=== PATIENT | female | born 1960 | race Caucasian/White ===

== ENCOUNTER 2018-03-12 15:37 | Outpatient (CLI) | payer OTHER | END 2018-03-12 15:38 | disposition critical access hospital (66) | LOC: EMS 15:37 | PROVIDERS: ATTEND Surgery | DX: S59.911A Unspecified injury of right forearm, initial encounter (principal); S00.81XA Abrasion of other part of head, initial encounter; V93.39XA Fall on board unspecified watercraft, initial encounter; Y92.814 Boat as the place of occurrence of the external cause | CPT/HCPCS: A0425; A0427 ==

== ENCOUNTER 2018-03-12 16:01 | Emergency (ER) | payer OTHER ==
[2018-03-12] MEDS ORDERED: HYDROmorphone 1 MG/ML CARPUJECT IVP STA ×2 (16:59→19:02)
--- NOTE | 2018-03-12 17:10 | XRAY Report ---
Procedure Date: 03/12/2018 Accession Number: [id number] / [id number] Procedure: XR - Wrist 4 View RT CPT Code: FULL RESULT: EXAM: RIGHT WRIST RADIOGRAPHY EXAM DATE: 03/12/2018 04:53 PM. CLINICAL HISTORY: Fall. COMPARISON: None. TECHNIQUE: 4 views. FINDINGS: Bones: There is a comminuted distal radius fracture. There is 2 cm of dorsal displacement of the distal radius articular surface. There is intra-articular involvement of fracture. There is fracture of the distal ulna. There is approximately 31 degrees of angulation of the distal radius fracture on the lateral image. Joints: No dislocation at the radiocarpal joint. Soft Tissues: There is soft tissue swelling of the distal forearm. IMPRESSION: Comminuted intra-articular distal radius fracture with 2 cm of displacement and 31 degrees of angulation. Distal ulna fracture. RADIA
--- NOTE | 2018-03-12 17:20 | ED Physician Documentation ---
History of Present Illness - Stated complaint Stated Complaint: FALL - Chief complaint Chief Complaint: Trauma Ext - History obtained from History obtained from: Patient, Family, EMS - History of Present Illness Timing: Today Pain level max: 10 Pain level now: 10 Quality: pain Improved by: rest Worsened by: movement. - Additonal information Additional information: Patient was on a boat, fell and hurt the right wrist. She is right handed. Also complains of pain to the R shoulder. No LOC. no vomiting. no ams. Review of Systems Ten Systems: 10 systems reviewed and negative Constitutional: denies: Fever, Chills Ears: denies: Ear pain Throat: denies: Sore throat Cardiac: denies: Chest pain / pressure Respiratory: denies: Cough GI: denies: Nausea, Vomiting, Diarrhea Skin: denies: Rash Musculoskeletal: denies: Neck pain, Back pain Neurologic: denies: Confused, Altered mental status, Headache, LOC PD PAST MEDICAL HISTORY - Past Medical History Past Medical History: Yes Neuro: Migraines Endocrine/Autoimmune: HyPOthyroidism Psych: Anxiety - Past Surgical History Past Surgical History: Yes General: Gastric surgery, 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, Hysterectomy, Other HEENT: Tonsil/Adenoidectomy, Other Derm: Skin cancer surgery - Present Medications Home Medications: Ambulatory Orders Medication Instructions Recorded Confirmed Acetaminophen [Tylenol Extra 03/12/18 Strength] Hydrocodone/Acetaminophen 1 - 2 each PO Q6H PRN #14 tablet 03/12/18 [Hydrocodon-Acetaminophen 5-325] Levothyroxine Sodium [Synthroid] 03/12/18 Ondansetron Odt [Zofran Odt] 03/12/18 Sertraline HCl [Zoloft] 03/12/18 Sumatriptan Succinate [Imitrex] 03/12/18 clonazePAM [Clonazepam] 03/12/18 - Allergies Allergies/Adverse Reactions: Allergies Allergy/AdvReac Type Severity Reaction Status Date / Time imiquimod [From Zyclara] Allergy Hives Verified 03/12/18 16:12 metronidazole [From Flagyl] Allergy Rash Verified 03/12/18 16:12 Sulfa (Sulfonamide Allergy Rash Verified 03/12/18 16:11 Antibiotics) - Social History Does the pt smoke?: No Smoking Status: Never smoker Does the pt drink ETOH?: Yes Does the pt have substance abuse?: No - Immunizations Immunizations are current?: Yes PD ED PE NORMAL - Vitals Vital signs reviewed: Yes - General General: Alert and oriented X 3, No acute distress, Well developed/nourished - HEENT HEENT: PERRL, EOMI, Ears normal, Moist mucous membranes, Pharynx benign, Other ( abrasion to the forehead, no hematoma or palpable skull fractures.) - Neck Neck: Supple, no meningeal sign, No bony TTP - Cardiac Cardiac: RRR, Strong equal pulses - Respiratory Respiratory: No respiratory distress, Clear bilaterally - Abdomen Abdomen: Soft, Non tender, Non distended - Back Back: No spinal TTP - Derm Derm: Warm and dry - Extremities Extremities: Other (deformity to the R wrist. states tingling to the fingers. NVI. also mild TTP over prox ulna. no deformity. no bony tenderness over the R shoulder or AC joint. 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 Distal ulna fracture. ) post reduction xray Radiology: Prelim report reviewed, EMP read contemporaneously, See rad report ( Distal radius fracture fragment in neutral position with decreased offset. ) R forearm xray Radiology: Prelim report reviewed, EMP read contemporaneously, See rad report ( No proximal to mid forearm fracture. Distal radius fragment without significant angulation. ) Procedures - Splint (location) R arm Splint applied by: Physician, Tech Type of splint: Fiberglass, Sugar tong Other: Patient tolerated well, No complications, Neurovascular intact, Sling provided - Reduction Body part reduced: Right, Wrist Fracture or dislocation: Fracture Anesthesia: Hematoma block, Lidocaine (enter cc) (10), Marcaine (enter cc) (10) Reduction aftercare: NV intact, Xray confirms reduction, Alignment improved, Splint applied, Sling, Patient tolerated well PD MEDICAL DECISION MAKING - ED course Complexity details: reviewed results, re-evaluated patient, considered differential, d/w patient, d/w family ED course: Patient is a 57-year-old female who presents to the emergency department with a right wrist fracture. This was reduced under hematoma block. Tolerated well. Placed in a sugar tong splint. [place] and will follow up with an orthopedist when she returns home. Pain well controlled. No other acute abnormalities on examination. Patient and family counseled regarding signs and symptoms for which I believe and urgent re-evaluation would be necessary. Patient with good understanding of and agreement to plan and is comfortable going home at this time This document was made in part using voice recognition software. While efforts are made to proofread this document, sound alike and grammatical errors may occur. - Sepsis Event Vital Signs: Vital Signs - 24 hr 03/12/18 03/12/18 03/12/18 16:04 19:09 20:01 Temperature 36.1 C L Heart Rate 71 63 63 Respiratory 15 15 20 Rate Blood Pressure 142/97 H 107/92 H 115/89 H O2 Saturation 98 963 H 99 Oxygen O2 Source Room air Departure - Departure Disposition: 01 Home, Self Care Clinical Impression: Distal radius fracture, right Qualifiers: Encounter type: initial encounter Fracture type: closed Fracture morphology: other intra-articular Qualified Code(s): S52.571A - Other intraarticular fracture of lower end of right radius, initial encounter for closed fracture Fracture of ulnar styloid Qualifiers: Encounter type: initial encounter Fracture type: closed Fracture alignment: nondisplaced Laterality: right Qualified Code(s): S52.614A - Nondisplaced fracture of right ulna styloid process, initial encounter for closed fracture Condition: Good Instructions: ED Fx Upper Ext Follow-Up: Provider,Other [Primary Care Provider] - Within 1 week Prescriptions: Hydrocodone/Acetaminophen [Hydrocodon-Acetaminophen 5-325] 1 - 2 each PO Q6H PRN #14 tablet PRN Reason: pain Comments: Return if you worsen. You need to follow up with an orthopedist for repeat evaluation. You may need surgery for this fracture as it is unstable. Do not drink alcohol or drive while on narcotic pain medicine. Note that many narcotic pain relievers also contain tylenol/acetaminophen. Please ensure that your total dose of acetaminophen from all sources does not exceed 3 grams (3000mg) per day. You may constipated on this medication, take a stool softener such as "Colace" twice a day while you are on it. Also recommend a [id number] laxative such as senna or MiraLAX any day that you do not have a bowel movement. If you received narcotic pain medication in the emergency department, do not drive or operate machinery for the next 24 hours. Discharge Date/Time: 03/12/18 20:20
[2018-03-12] MEDS ORDERED: LIDOCAINE 2% 10 ML MDV SUBQ STA (17:37)
[2018-03-12] MEDS ORDERED: BUPIVACAINE 0.5% PF 10 ML VIAL SUBQ STA (17:37)
[2018-03-12] MEDS ORDERED: LIDOCAINE 2% 10 ML MDV ONE (17:47)
[2018-03-12] MEDS ORDERED: oxyCOD/ACETAMIN 5 MG/325 MG TABLET PO STA (19:50)
[2018-03-12] MEDS ORDERED: oxyCODONE/ACET 5/325 Prepack 4 PO STA (19:50)
[2018-03-12 20:02] VITALS: BP 115/89
[2018-03-12] MEDS ORDERED: HYDROcod/ACET 5/325 Prepack 4 PO STA (20:05)
[2018-03-12] MEDS ORDERED: HYDROcod/ACETAM 5/325 MG TABLET PO STA (20:05)
--- NOTE | 2018-03-12 20:10 | XRAY Report ---
Procedure Date: 03/12/2018 Accession Number: [id number] / [id number] Procedure: XR - Wrist 2 View RT CPT Code: FULL RESULT: EXAM: RIGHT WRIST RADIOGRAPHY EXAM DATE: 03/12/2018 07:40 PM. CLINICAL HISTORY: Fracture. Post reduction. COMPARISON: WRIST 4 VIEW RT 03/12/2018. TECHNIQUE: 2 views. FINDINGS: Bones: There is a comminuted distal radius fracture. Distal radius fragment is in neutral position on the lateral image. The degree of displacement is decreased. Joints: Normal. No subluxations. Soft Tissues: A cast has been applied. IMPRESSION: Distal radius fracture fragment in neutral position with decreased offset. RADIA
--- NOTE | 2018-03-12 20:14 | XRAY Report ---
Procedure Date: 03/12/2018 Accession Number: [id number] / [id number] Procedure: XR - Forearm RT CPT Code: FULL RESULT: EXAM: RIGHT FOREARM RADIOGRAPHY EXAM DATE: 03/12/2018 07:40 PM. CLINICAL HISTORY: R mid forearm pain. COMPARISON: None. TECHNIQUE: 2 views. FINDINGS: Bones: There is a comminuted fracture of the distal radius. Distal fracture fragment is in neutral position with approximately 5-6 mm of offset. Joints: No dislocation at the elbow or wrist. Soft Tissues: A cast has been applied IMPRESSION: No proximal to mid forearm fracture. Distal radius fragment without significant angulation. RADIA
== END 2018-03-12 20:20 | disposition home or self-care (01) ==
LOC: ED 16:01
DX: S52.571A Other intraarticular fracture of lower end of right radius, initial encounter for closed fracture (principal); S52.621A Torus fracture of lower end of right ulna, initial encounter for closed fracture; S00.81XA Abrasion of other part of head, initial encounter; W18.39XA Other fall on same level, initial encounter; Y93.89 Activity, other specified; Y92.830 Public park as the place of occurrence of the external cause
CPT/HCPCS: 25560; 73090; 73100; 73110; 96374; 96376; 99283; 99284; A9270; J1170